=== PATIENT | male | born 1965 | race Caucasian/White ===

== ENCOUNTER 2025-01-26 23:55 | Observation (INO) | payer SELFPAY ==
[~2025-01-26] VITALS: Ht 152.4 cm; Wt 83.9 kg
[~2025-01-26 23:55] MED LIST: HUMALOG100 UNIT/3; LEVEMIR100 UNIT/1 SQ; ZYVOX600 MG PO
[2025-01-27] VITALS (10 sets, daily range): BP systolic 132–164; BP diastolic 87–96; PULSE 70–90; RESP 14–20; TEMP 97–98.3; O2SAT 92–100
[2025-01-27] MEDS ORDERED: SODIUM CHLORIDE FLUSH 10 ML SYR IV PRN (00:15)
[2025-01-27 00:41] LABS: BASOPHILS # (AUTO) 0.1 (0.0-0.1); BASOPHILS % 0.8 % (0.0-1.0); EOSINOPHILS # (AUTO) 0.3 (0.0-0.4); EOSINOPHILS % 3.8 % (0.0-6.0); HEMATOCRIT 38.4 % (38.2-49.6); HEMOGLOBIN 12.7 g/dL (14.0-18.0); LYMPHOCYTES # (AUTO) 2.2 (1.0-3.2); LYMPHOCYTES % 31.7 % (18.0-39.1); MEAN CORPUSCULAR HEMOGLOBIN 28.5 pg (28-32); MEAN CORPUSCULAR HGB CONC 33.1 g/dL (31-35); MEAN CORPUSCULAR VOLUME 86.3 fL (81-99); MONOCYTES # (AUTO) 0.5 (0.2-0.8); MONOCYTES % 6.8 % (4.4-11.3); NEUTROPHILS % 56.6 % (38.7-80.0); PLATELET COUNT 270 x10e3/uL (140-360); RED BLOOD COUNT 4.45 x10e6/uL (4.3-5.7); RED CELL DISTRIBUTION WIDTH 13.6 % (11.7-14.4); WHITE BLOOD COUNT 7.06 x10e3/uL (4.8-10.8)
[2025-01-27 00:55] LABS: ALANINE AMINOTRANSFERASE 17 IU/L (0-55); ALBUMIN/GLOBULIN RATIO 1.4 (0.8-2.0); ALKALINE PHOSPHATASE 65 IU/L (40-150); ANION GAP 17.2 mmol/L (8-16); BILIRUBIN,TOTAL 0.5 mg/dL (0.2-1.2); BLOOD UREA NITROGEN 18 mg/dL (7-26); BUN/CREATININE RATIO 12 (6-25); CALCIUM 9.4 mg/dL (8.4-10.2); CARBON DIOXIDE 20 mmol/L (22-29); CHLORIDE 106 mmol/L (98-107); CREATININE, SERUM 1.49 mg/dL (0.72-1.25); EST GLOMERULAR FILTRATION RATE 53 ML/MIN (>=60); GLUCOSE 184 mg/dL (74-118); SODIUM 140 mmol/L (136-145); TOTAL PROTEIN 6.9 g/dL (6.5-8.1)
[2025-01-27 01:06] LABS: POTASSIUM 3.2 mmol/L (3.5-5.1); TROPONIN I < 0.05 ng/mL (0.0-0.40)
[2025-01-27] MEDS ORDERED: ONDANSETRON HCL INJ 2MG/ML 2ML 2 MG/ML VIAL IV PRN (02:45)
[2025-01-27] MEDS ORDERED: SODIUM CHLORIDE FLUSH 10 ML SYR INJ PRN (02:45)
[2025-01-27] MEDS ORDERED: NOVOLOG MI100 UNIT/1 SC (04:08)
[2025-01-27 08:37] LABS: CREATINE KINASE 137 IU/L (30-200)
[2025-01-27 08:44] LABS: TROPONIN I < 0.001 ng/mL (0-0.300)
[2025-01-27] MEDS ORDERED: ALBUTEROL/IPRATROPIUM 3 ML NEB NEB PRN (10:30)
[2025-01-27] MEDS ORDERED: ACETAMINOPHEN 325 MG TAB PO PRN (10:30)
[2025-01-27] MEDS ORDERED: MELATONIN 3 MG TAB PO PRN (10:30)
[2025-01-27] MEDS ORDERED: METOPROLOL TARTRATE INJ 1 MG/ML VIAL IV PRN (10:30)
[2025-01-27] MEDS: INSULIN ASPART 70/30 100 UNITS/ML VIAL SC SCH (11:47)
[2025-01-27] MEDS: SODIUM CHLORIDE 0.9% 1000ML 1,000 ML IV SCH (11:48)
[2025-01-27 16:02] LABS: CREATINE KINASE 126 IU/L (30-200)
[2025-01-27 16:13] LABS: TROPONIN I < 0.001 ng/mL (0-0.300)
[2025-01-28] VITALS (8 sets, daily range): BP systolic 128–158; BP diastolic 81–94; PULSE 66–77; RESP 18–20; TEMP 97.5–98; O2SAT 96–100
[2025-01-28 05:09] LABS: BASOPHILS # (AUTO) 0.1 (0.0-0.1); BASOPHILS % 0.8 % (0.0-1.0); EOSINOPHILS # (AUTO) 0.2 (0.0-0.4); EOSINOPHILS % 3.8 % (0.0-6.0); HEMATOCRIT 34.1 % (38.2-49.6); HEMOGLOBIN 11.5 g/dL (14.0-18.0); LYMPHOCYTES # (AUTO) 1.9 (1.0-3.2); LYMPHOCYTES % 29.5 % (18.0-39.1); MEAN CORPUSCULAR HEMOGLOBIN 28.8 pg (28-32); MEAN CORPUSCULAR HGB CONC 33.7 g/dL (31-35); MEAN CORPUSCULAR VOLUME 85.5 fL (81-99); MONOCYTES # (AUTO) 0.5 (0.2-0.8); NEUTROPHILS # (AUTO) 3.6 (2.1-6.9); NEUTROPHILS % 57.6 % (38.7-80.0); PLATELET COUNT 228 x10e3/uL (140-360); RED BLOOD COUNT 3.99 x10e6/uL (4.3-5.7); RED CELL DISTRIBUTION WIDTH 13.6 % (11.7-14.4); WHITE BLOOD COUNT 6.28 x10e3/uL (4.8-10.8)
[2025-01-28 05:41] LABS: ALBUMIN 3.4 g/dL (3.5-5.0); ALBUMIN/GLOBULIN RATIO 1.3 (0.8-2.0); ANION GAP 12.8 mmol/L (8-16); BILIRUBIN,TOTAL 0.4 mg/dL (0.2-1.2); CALCIUM 8.7 mg/dL (8.4-10.2); CREATININE, SERUM 1.32 mg/dL (0.72-1.25); POTASSIUM 3.8 mmol/L (3.5-5.1)
[2025-01-28] MEDS ORDERED: ASPIRIN EC81 MG PO (09:47)
[2025-01-29] VITALS (7 sets, daily range): BP systolic 130–151; BP diastolic 84–96; PULSE 70–76; RESP 18; TEMP 97.7–98.1; O2SAT 97–100
[2025-01-29] MEDS: DOCUSATE SODIUM 100 MG CAP PO PRN (06:06)
[2025-01-29 10:03] LABS: ANION GAP 14.2 mmol/L (8-16); CALCIUM 8.9 mg/dL (8.4-10.2); CREATININE, SERUM 1.36 mg/dL (0.72-1.25); POTASSIUM 4.2 mmol/L (3.5-5.1)
[2025-01-29] MEDS: METOPROLOL SUCCINATE 25 MG TAB XL PO SCH (16:46)
[2025-01-29] MEDS ORDERED: MIDODRINE HCL 5 MG TABLET PO PRN (17:15)
[2025-01-29] MEDS ORDERED: METFORMIN HCL500 MG PO (18:10)
[2025-01-29] MEDS ORDERED: MIDODRINE HCL5 MG PO (18:10)
== END 2025-01-29 18:40 | disposition home or self-care (01) ==
LOC: ER 01-27 00:04 → ERHOLD 01-27 02:45 → MED/SURG 01-27 03:52
PROVIDERS: ADMIT Internal Medicine; ATTEND Internal Medicine
DX: R55 Syncope and collapse (principal); I49.3 Ventricular premature depolarization; E87.6 Hypokalemia; E86.9 Volume depletion, unspecified; I95.9 Hypotension, unspecified; E11.42 Type 2 diabetes mellitus with diabetic polyneuropathy; Z79.4 Long term (current) use of insulin; Z89.512 Acquired absence of left leg below knee; H54.7 Unspecified visual loss; Z87.442 Personal history of urinary calculi; Z88.0 Allergy status to penicillin
CPT/HCPCS: 36415 ×3; 71045; 80048; 80053 ×2; 82550; 82948 ×3; 83880; 84443; 84484; 85025 ×2; 93005 ×3; 93306; 93880; 94760; 94799 ×3; 97116; 97161; 99284; G0378 ×3; J1815; J7030